=== PATIENT | male | born 1950 | race Caucasian/White ===

== ENCOUNTER → 2018-04-24 16:01 | Outpatient (CLI) | payer MEDICARE, OTHER, SELFPAY ==
[2018-04-24 16:39] LABS: Add Manual Diff / Slide Review NO; Basophils Percent Auto 1.3 % (0-2); Hematocrit 33.4 % (41-53); Hemoglobin 11.6 g/dL (13.5-17.5); Lymphocytes Percent Auto 13.9 % (25-40); Mean Corpuscular HGB Conc 34.8 % (30-36); Mean Corpuscular Hemoglobin 32.6 PG (26-34); Mean Corpuscular Volume 93.8 fL (80-100); Monocytes Percent Auto 13.8 % (3-14); Neutrophils Absolute Auto 3000 /uL (3000-5900); Platelet Count 248 X10^3/uL (150-400); Red Blood Cell Count 3.56 X10^6/uL (4.5-5.9); Red Cell Distribution Width 12.6 % (11.6-14.8); White Blood Cell Count 4.5 X10^3/uL (4.5-11.0)
[2018-04-24 16:57] LABS: Alanine Aminotransferase 27 IU/L (21-72); Albumin 3.9 g/dL (3.5-5.0); Albumin Globulin Ratio 1.6 (1.0-2.8); Alkaline Phosphatase 41 U/L (38-126); Aspartate Aminotransferase 25 IU/L (17-59); BUN Creatinine Ratio 24.4 (6-22); Bilirubin Total 0.3 mg/dL (0.2-1.3); Blood Urea Nitrogen 22 mg/dL (9-20); Carbon Dioxide 32 mmol/L (22-32); Chloride 99 mmol/L (98-107); Estimated Glomerular Filt Rate > 60.0 mL/min (>60); Globulin 2.5 g/dL (1.7-4.1); Glucose 80 mg/dL (80-110); HEMOLYSIS < 15 (0-50); Potassium 4.2 mmol/L (3.4-5.1); Sodium 139 mmol/L (137-145); Total Protein 6.4 g/dL (6.3-8.2)
[2018-04-24 17:14] LABS: Free T4, Direct Thyroxine 0.46 ng/dL (0.78-2.19)
== END ==
PROVIDERS: Visit Provider Family Medicine
DX: C76.0 Malignant neoplasm of head, face and neck (principal)
CPT/HCPCS: 36415; 80053; 84439; 84443; 84481; 85025

== ENCOUNTER → 2018-05-29 07:34 | Outpatient (CLI) | payer MEDICARE, OTHER, SELFPAY ==
[2018-05-29 08:41] LABS: Add Manual Diff / Slide Review NO; Basophils Percent Auto 1.3 % (0-2); Eosinophils Percent Auto 4.1 % (2-4); Hematocrit 35.6 % (41-53); Hemoglobin 12.2 g/dL (13.5-17.5); Lymphocytes Percent Auto 13.2 % (25-40); Mean Corpuscular HGB Conc 34.4 % (30-36); Mean Corpuscular Hemoglobin 32.8 PG (26-34); Mean Corpuscular Volume 95.3 fL (80-100); Monocytes Percent Auto 14.7 % (3-14); Neutrophils Absolute Auto 2900 /uL (3000-5900); Neutrophils Percent Auto 66.7 % (50-75); Platelet Count 257 X10^3/uL (150-400); Red Blood Cell Count 3.73 X10^6/uL (4.5-5.9); Red Cell Distribution Width 13.2 % (11.6-14.8); White Blood Cell Count 4.4 X10^3/uL (4.5-11.0)
[2018-05-29 09:06] LABS: Alanine Aminotransferase 22 IU/L (21-72); Albumin Globulin Ratio 1.5 (1.0-2.8); Alkaline Phosphatase 39 U/L (38-126); Aspartate Aminotransferase 21 IU/L (17-59); Bilirubin Total 0.5 mg/dL (0.2-1.3); Blood Urea Nitrogen 20 mg/dL (9-20); Calcium 8.9 mg/dL (8.4-10.2); Carbon Dioxide 34 mmol/L (22-32); Chloride 100 mmol/L (98-107); Cholesterol 210 mg/dL (140-199); Estimated Glomerular Filt Rate > 60.0 mL/min (>60); Globulin 2.6 g/dL (1.7-4.1); Glucose 99 mg/dL (80-110); HDL Cholesterol 67 mg/dL (40-60); HEMOLYSIS < 15 (0-50); LDL Cholesterol Calculated 126 mg/dL (<100); Potassium 4.2 mmol/L (3.4-5.1); Sodium 140 mmol/L (137-145); Total Protein 6.6 g/dL (6.3-8.2); Triglycerides 83 mg/dL (35-150)
[2018-05-29 09:22] LABS: Free T3, Triiodothyronine Free 3.59 pg/mL (2.77-5.27)
[2018-05-29 09:36] LABS: Thyroid Stimulating Hormone 4.79 uIU/mL (0.47-4.68)
== END ==
PROVIDERS: Visit Provider Family Medicine
DX: E03.9 Hypothyroidism, unspecified (principal); Z51.81 Encounter for therapeutic drug level monitoring
CPT/HCPCS: 36415; 80053; 80061; 84439; 84443; 84481; 85025

== ENCOUNTER → 2018-06-12 14:10 | Outpatient (CLI) | payer MEDICARE, OTHER, SELFPAY ==
--- NOTE | 2018-06-12 14:12 | DI.US.S_ITS ---
PROCEDURE: US CAROTID DOPPLER BI INDICATIONS: history of radiation to neck tumor TECHNIQUE: Color and pulse Doppler interrogation was performed of both carotid systems, with image documentation and velocity measurements. COMPARISON: None. FINDINGS: Stenosis calculations are based on SRU (Society of Radiologists in Ultrasound) criteria. Right side: Common carotid artery peak systolic velocity: 184 cm/sec. Internal carotid artery peak systolic velocity: 196 cm/sec. Internal carotid artery end diastolic velocity: 35 cm/sec. External carotid artery peak systolic velocity: 182 cm/sec. ICA/CCA peak systolic ratio: 1.1. Richard scale imaging description: Moderate calcific and soft plaque Percent internal carotid artery stenosis: 50-69% stenosis. Vertebral artery: Flow direction is antegrade. Left side: Common carotid artery peak systolic velocity: 236 cm/sec. Internal carotid artery peak systolic velocity: 165 cm/sec. Internal carotid artery end diastolic velocity: 20 cm/sec. External carotid artery peak systolic velocity: 151 cm/sec. ICA/CCA peak systolic ratio: 0.7. Richard scale imaging description: Mild to moderate calcific and soft plaque Percent internal carotid artery stenosis: 50-69% stenosis within the proximal left internal carotid artery.. Vertebral artery: Flow direction is antegrade. IMPRESSION: 50-69% stenosis within the proximal internal carotid arteries bilaterally. Normal vertebral arterial flow. Dictated by: Mino Ying M.D. on 06/12/2018 at 16:05 Approved by: Mino Ying M.D. on 06/12/2018 at 16:08
== END ==
PROVIDERS: Visit Provider Family Medicine
DX: I65.23 Occlusion and stenosis of bilateral carotid arteries (principal); C76.0 Malignant neoplasm of head, face and neck
CPT/HCPCS: 93880

== ENCOUNTER → 2018-07-19 08:39 | Outpatient (CLI) | payer MEDICARE, OTHER, SELFPAY ==
[2018-07-19 09:37] LABS: Alanine Aminotransferase 28 IU/L (21-72); Albumin 3.8 g/dL (3.5-5.0); Albumin Globulin Ratio 1.3 (1.0-2.8); Alkaline Phosphatase 46 U/L (38-126); Aspartate Aminotransferase 33 IU/L (17-59); BUN Creatinine Ratio 31.1 (6-22); Bilirubin Total 0.3 mg/dL (0.2-1.3); Blood Urea Nitrogen 28 mg/dL (9-20); Carbon Dioxide 34 mmol/L (22-32); Chloride 102 mmol/L (98-107); Cholesterol 165 mg/dL (140-199); Estimated Glomerular Filt Rate > 60.0 mL/min (>60); Globulin 2.9 g/dL (1.7-4.1); Glucose 130 mg/dL (80-110); HDL Cholesterol 39 mg/dL (40-60); HEMOLYSIS 21 (0-50); LDL Cholesterol Calculated 92 mg/dL (<100); Potassium 4.6 mmol/L (3.4-5.1); Sodium 142 mmol/L (137-145); Total Protein 6.7 g/dL (6.3-8.2); Triglycerides 169 mg/dL (35-150)
[2018-07-19 09:52] LABS: Free T3, Triiodothyronine Free 2.92 pg/mL (2.77-5.27)
[2018-07-19 10:06] LABS: Thyroid Stimulating Hormone 3.27 uIU/mL (0.47-4.68)
== END ==
PROVIDERS: Visit Provider Family Medicine
DX: E78.5 Hyperlipidemia, unspecified (principal); I10 Essential (primary) hypertension; E03.9 Hypothyroidism, unspecified
CPT/HCPCS: 36415; 80053; 80061; 84439; 84443; 84481

== ENCOUNTER → 2018-09-05 10:41 | Outpatient (CLI) | payer MEDICARE, OTHER, SELFPAY ==
[2018-09-05 12:24] LABS: Alanine Aminotransferase 35 IU/L (21-72); Albumin 3.8 g/dL (3.5-5.0); Albumin Globulin Ratio 1.7 (1.0-2.8); Alkaline Phosphatase 45 U/L (38-126); Aspartate Aminotransferase 29 IU/L (17-59); BUN Creatinine Ratio 23.3 (6-22); Bilirubin Total 0.2 mg/dL (0.2-1.3); Blood Urea Nitrogen 21 mg/dL (9-20); Calcium 8.5 mg/dL (8.4-10.2); Carbon Dioxide 30 mmol/L (22-32); Chloride 99 mmol/L (98-107); Cholesterol 140 mg/dL (140-199); Estimated Glomerular Filt Rate > 60.0 mL/min (>60); Globulin 2.3 g/dL (1.7-4.1); Glucose 99 mg/dL (80-110); HDL Cholesterol 59 mg/dL (40-60); HEMOLYSIS < 15 (0-50); LDL Cholesterol Calculated 68 mg/dL (<100); Sodium 138 mmol/L (137-145); Total Protein 6.1 g/dL (6.3-8.2); Triglycerides 66 mg/dL (35-150)
[2018-09-05 12:51] LABS: Thyroid Stimulating Hormone 2.99 uIU/mL (0.47-4.68)
[2018-09-05 13:02] LABS: Hemoglobin A1C% w Est Avg Glu 5.6 % (4.0-6.0)
== END ==
PROVIDERS: PCP Family Medicine; Visit Provider Family Medicine
DX: R73.9 Hyperglycemia, unspecified (principal); Z13.220 Encounter for screening for lipoid disorders; Z13.29 Encounter for screening for other suspected endocrine disorder; Z51.81 Encounter for therapeutic drug level monitoring
CPT/HCPCS: 36415; 80053; 80061; 83036; 84443

== ENCOUNTER → 2018-09-06 14:38 | Outpatient (CLI) | payer MEDICARE, OTHER, SELFPAY ==
--- NOTE | 2018-09-06 | DI.CT.S_ITS ---
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 Additional oblique axial 3.0 mm sections acquired through the pharynx. 3 mm thick coronal and sagittal reformats were generated. For radiation dose reduction, the following was used: automated exposure control. COMPARISON: [facility], CT, SOFT TISSUE NECK W CONTRAST, 09/02/2017, 15:04. FINDINGS: Image quality: Excellent. Lymph nodes: No enlarged lymph nodes seen throughout the neck. Vessels: Atherosclerotic calcification is noted in the origins of the internal carotid arteries bilaterally which appear to cause significant stenosis. Neck spaces: There is a 4.6 x 1.5 x 4.9 cm soft tissue density lesion involving the anterior left neck adjacent to and anterior to the left sternocleidomastoid muscle in the region of the previously described large heterogeneously enhancing neck mass. Lesion is decreased in size compared to 09/02/2017. Lesion occludes at the mid aspect of the left internal jugular vein. The mass abuts and may partially encase the left common carotid artery. The oropharynx, nasopharynx, and pharynx demonstrate no mucosal lesions. The vocal cords, false vocal cords, pyriform sinuses, epiglottis, vallecula, and tongue base all appear normal. Extramucosal spaces appear unremarkable. Glands: The parotid and submandibular glands appear normal. Thyroid gland is within normal limits. Miscellaneous: Visualized brain and orbits appear normal. Lung apices appear clear. Superficial soft tissues appear normal. Bones: No suspicious bony lesions. Spine degenerative disc disease and facet arthropathy. Mild bilateral maxillary sinus mucosal thickening is noted. The mastoids appear unremarkable. IMPRESSION: 1. Anterolateral left neck mass has decreased in size compared to 09/02/2017 measuring approximately 4.6 x 1.5 x 4.9 cm in the current study (the 5.2 x 7.5 x 7.2 cm previously). 2. No lymphadenopathy based on size criteria. Dictated by: Luisa Palmer MD, PhD on 09/06/2018 at 16:54 Approved by: Luisa Palmer MD, PhD on 09/06/2018 at 17:04
--- NOTE | 2018-09-06 | DI.CT.S_ITS ---
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 7 mm thick coronal and sagittal MIP reformats were acquired. For radiation dose reduction, the following was used: automated exposure control, adjustment of mA and/or kV according to patient size. COMPARISON: None. FINDINGS: Image quality: Excellent. Lungs and pleura: No acute consolidation. 2-3 mm ill-defined nodule seen in the posterior left lower lobe on image 53 series 3. Presumed scarring seen in the left posterior sulcus on image 62.. No pleural effusions or pneumothorax. Central and peripheral airways are patent and normal in caliber. Mediastinum: Heart size is normal. Coronary artery calcifications are present. No pericardial effusion. No mediastinal or hilar adenopathy by size criteria. Thoracic aorta and central pulmonary arteries are normal in size. Esophagus is normal in caliber. No hiatal hernia. Bones and chest wall: No suspicious bony lesions. No vertebral body compression fractures. No axillary or supraclavicular adenopathy by size criteria. Thyroid gland unremarkable. Abdomen: Visualized upper abdominal solid organs appear normal. Upper abdominal bowel loops are normal in caliber. IMPRESSION: 2-3 mm left lower lobe indeterminate pulmonary nodule. Recommend attention on subsequent CT studies to exclude early pulmonary metastasis. Elsewhere, no specific CT evidence of metastatic disease. Coronary artery disease. Dictated by: Trever Talbot M.D. on 09/06/2018 at 16:52 Approved by: Trever Talbot M.D. on 09/06/2018 at 16:58
== END ==
PROVIDERS: PCP Family Medicine; Visit Provider Radiology Radiation Oncology
DX: C77.0 Secondary and unspecified malignant neoplasm of lymph nodes of head, face and neck (principal); R22.1 Localized swelling, mass and lump, neck; R91.1 Solitary pulmonary nodule; I25.10 Atherosclerotic heart disease of native coronary artery without angina pectoris
CPT/HCPCS: 70491; 71260; Q9967

== ENCOUNTER → 2019-07-31 12:32 | Outpatient (CLI) | payer MEDICARE, OTHER, SELFPAY ==
[2019-07-31 13:04] LABS: Add Manual Diff / Slide Review NO; Basophils Absolute Auto 100 /uL (0-100); Basophils Percent Auto 0.9 % (0-2); Eosinophils Absolute Auto 200 /uL (0-450); Eosinophils Percent Auto 3.5 % (2-4); Hematocrit 37.5 % (41-53); Hemoglobin 12.8 g/dL (13.5-17.5); Lymphocytes Absolute Auto 700 /uL (1100-4500); Lymphocytes Percent Auto 12.7 % (25-40); Mean Corpuscular HGB Conc 34.1 % (30-36); Mean Corpuscular Hemoglobin 31.7 PG (26-34); Mean Corpuscular Volume 92.9 fL (80-100); Monocytes Absolute Auto 700 /uL (0-900); Monocytes Percent Auto 12.3 % (3-14); Neutrophils Absolute Auto 3900 /uL (1500-7000); Neutrophils Percent Auto 70.6 % (50-75); Platelet Count 234 X10^3/uL (150-400); Red Blood Cell Count 4.04 X10^6/uL (4.5-5.9); Red Cell Distribution Width 12.5 % (11.6-14.8); White Blood Cell Count 5.5 X10^3/uL (4.5-11.0)
[2019-07-31 13:28] LABS: Uric Acid 6.7 mg/dL (3.5-8.5)
[2019-07-31 13:59] LABS: Thyroid Stimulating Hormone 1.84 uIU/mL (0.47-4.68)
[2019-07-31 14:13] LABS: Erythrocyte Sedimentation Rate 13 MM/HR (0-15)
== END ==
PROVIDERS: PCP Family Medicine; Visit Provider Family Medicine
DX: C76.0 Malignant neoplasm of head, face and neck (principal); I65.29 Occlusion and stenosis of unspecified carotid artery; E03.9 Hypothyroidism, unspecified; M19.90 Unspecified osteoarthritis, unspecified site
CPT/HCPCS: 36415; 84443; 84550; 85025; 85651

== ENCOUNTER → 2019-09-19 10:08 | Outpatient (CLI) | payer MEDICARE, OTHER, SELFPAY ==
--- NOTE | 2019-09-19 10:10 | DI.US.S_ITS ---
PROCEDURE: US CAROTID DOPPLER BI INDICATIONS: CAROTID STENOSIS TECHNIQUE: Color and pulse Doppler interrogation was performed of both carotid systems, with image documentation and velocity measurements. COMPARISON: [facility], , US CAROTID DOPPLER BI, 06/12/2018, 14:38. FINDINGS: Stenosis calculations are based on SRU (Society of Radiologists in Ultrasound) criteria. Right side: Brachial blood pressure: Not obtained. Common carotid artery peak systolic velocity: 262 cm/sec. Internal carotid artery peak systolic velocity: 212 cm/sec. Internal carotid artery end diastolic velocity: 61 cm/sec. External carotid artery peak systolic velocity: 124 cm/sec. ICA/CCA peak systolic ratio: 0.8. Richard scale imaging description: Heavy scattered Bi. Percent internal carotid artery stenosis: 50-69% stenosis. Vertebral artery: Flow direction is antegrade. Left side: Brachial blood pressure: 130/61 mm Hg. Common carotid artery peak systolic velocity: 176 cm/sec. Internal carotid artery peak systolic velocity: 326 cm/sec. Internal carotid artery end diastolic velocity: 107 cm/sec. External carotid artery peak systolic velocity: 202 cm/sec. ICA/CCA peak systolic ratio: 1.9. Richard scale imaging description: Heavy scattered plaque. Percent internal carotid artery stenosis: 70% stenosis to near occlusion. Vertebral artery: Flow direction is antegrade. IMPRESSION: 1. 50-69% stable right internal carotid artery stenosis. 2. Progressive 70% stenosis to near occlusion of the left internal carotid artery. 2. Elevated velocities within the common carotid arteries bilaterally suggesting proximal disease, right greater than left. Dictated by: [facility] Interpreted: Luisa Palmer MD on 09/19/2019 at 12:51 Approved by: Luisa Palmer MD, PhD on 09/19/2019 at 13:27
== END ==
PROVIDERS: PCP Family Medicine; Visit Provider Family Medicine
DX: I65.23 Occlusion and stenosis of bilateral carotid arteries (principal)
CPT/HCPCS: 93880

== ENCOUNTER → 2020-01-03 08:07 | Outpatient (CLI) | payer MEDICARE, SELFPAY ==
--- NOTE | 2020-01-03 08:11 | DI.RAD.S_ITS ---
PROCEDURE: XR FINGER LT MIN 2V INDICATIONS: Left index finger pain TECHNIQUE: AP hand, 2 views of the left finger(s) acquired. COMPARISON: None. FINDINGS: Bones: No fractures or dislocations. No suspicious bony lesions. Subtle age indeterminate articular lucency is present at the DIP joints of the index and middle finger. Diffuse interphalangeal joint degeneration, and diffuse MCP joint degeneration. There are hooklike osteophytes at the second and third metacarpal heads. First CMC and triscaphe joint degeneration. Marginal lucency seen involving the second metacarpal head, and at the triquetral, and lunate. Soft tissues: No suspicious soft tissue calcifications. IMPRESSION: Diffuse left hand joint degeneration as above. Hooklike osteophytes at the MCP joint raise the possibility of deposition arthropathy Scattered age-indeterminate juxta-articular lucencies as detailed above. Dictated by: Trever Talbot M.D. on 01/03/2020 at 10:26 Approved by: Trever Talbot M.D. on 01/03/2020 at 10:29
== END ==
PROVIDERS: PCP Physician Assistant; Referring Provider Family Medicine; Visit Provider Family Medicine
DX: M19.042 Primary osteoarthritis, left hand (principal); M18.12 Unilateral primary osteoarthritis of first carpometacarpal joint, left hand
CPT/HCPCS: 73140

== ENCOUNTER → 2020-05-05 08:21 | Outpatient (CLI) | payer MEDICARE, SELFPAY ==
[2020-05-05 09:47] LABS: Add Manual Diff / Slide Review NO; Basophils Absolute Auto 0 /uL (0-100); Eosinophils Absolute Auto 200 /uL (0-450); Hematocrit 37.2 % (41-53); Lymphocytes Absolute Auto 700 /uL (1100-4500); Lymphocytes Percent Auto 14.2 % (25-40); Mean Corpuscular Hemoglobin 32.6 PG (26-34); Mean Corpuscular Volume 93.3 fL (80-100); Monocytes Absolute Auto 700 /uL (0-900); Monocytes Percent Auto 13.5 % (3-14); Neutrophils Absolute Auto 3400 /uL (1500-7000); Neutrophils Percent Auto 67.3 % (50-75); Platelet Count 232 X10^3/uL (150-400); Red Blood Cell Count 3.98 X10^6/uL (4.5-5.9); Red Cell Distribution Width 12.7 % (11.6-14.8)
[2020-05-05 10:23] LABS: Erythrocyte Sedimentation Rate 16 MM/HR (0-15)
[2020-05-05 10:34] LABS: Alanine Aminotransferase 21 IU/L (<50); Albumin 3.8 g/dL (3.5-5.0); Albumin Globulin Ratio 1.7 (1.0-2.8); Alkaline Phosphatase 52 U/L (38-126); Aspartate Aminotransferase 30 IU/L (17-59); BUN Creatinine Ratio 24.7 (6-22); Bilirubin Total 0.7 mg/dL (0.2-1.3); Blood Urea Nitrogen 22 mg/dL (9-20); C-Reactive Protein Quant 1.6 mg/dL (<1.0); Carbon Dioxide 32 mmol/L (22-32); Chloride 102 mmol/L (98-107); Cholesterol 156 mg/dL (140-199); Estimated Glomerular Filt Rate > 60.0 mL/min (>60); Globulin 2.3 g/dL (1.7-4.1); Glucose 102 mg/dL (80-110); HDL Cholesterol 55 mg/dL (40-60); HEMOLYSIS < 15 (0-50); LDL Cholesterol Calculated 88 mg/dL (<100); Potassium 4.7 mmol/L (3.4-5.1); Sodium 137 mmol/L (137-145); Total Protein 6.1 g/dL (6.3-8.2); Triglycerides 64 mg/dL (35-150)
[2020-05-05 10:39] LABS: Rheumatoid Factor < 8.6 IU/mL (<12.0)
[2020-05-05 11:00] LABS: TSH w/ Reflex to FT4 4.63 uIU/mL (0.47-4.68)
[2020-05-06 20:44] LABS: ANA Screen, IFA Negative (.)
[2020-05-07 21:07] LABS: CCP Antibodies IgG/IgA 22 units (0-19)
== END ==
PROVIDERS: PCP Physician Assistant; Referring Provider Physician Assistant; Visit Provider Physician Assistant
DX: E78.2 Mixed hyperlipidemia (principal); E03.9 Hypothyroidism, unspecified; M25.542 Pain in joints of left hand; M25.50 Pain in unspecified joint
CPT/HCPCS: 36415; 80053; 80061; 84443; 85025; 85651; 86038; 86140; 86200; 86430

== ENCOUNTER → 2020-10-22 08:46 | Outpatient (CLI) | payer MEDICARE, SELFPAY ==
--- NOTE | 2020-10-22 | DI.CT.S_ITS ---
PROCEDURE: CT SOFT TISSUE NECK W CON INDICATIONS: Malignant neoplasm of lower gum TECHNIQUE: After the administration of intravenous contrast, 3.0 mm axial sections acquired from the sella to the aortic arch. Additional oblique axial 3.0 mm sections acquired through the pharynx. 3 mm thick coronal and sagittal reformats were generated. For radiation dose reduction, the following was used: automated exposure control. COMPARISON: [facility], [place], [place] FUSION SKULL 2 THIGH, 11/22/2018, 13:54. [facility], CT, SOFT TISSUE NECK W CONTRAST, 09/02/2017, 15:04. [facility], CT, CT SOFT TISSUE NECK W CON, 09/06/2018, 14:45. FINDINGS: Image quality: Excellent. Lymph nodes: No enlarged lymph nodes seen throughout the neck. Vessels: Visualized vasculature appears patent. Neck spaces: There is appearance of soft tissue thickening in the anterior neck adjacent to the left sternocleidomastoid muscle. Area of enlargement measures approximately 44 mm AP x 18 mm transverse. It is less prominent compared to 2018 and appearing relatively stable compared to 2019 PET scan. Glands: The parotid and submandibular glands appear normal. Thyroid gland is unremarkable . Miscellaneous: Visualized brain and orbits appear normal. Lung apices appear clear. Superficial soft tissues appear normal. Bones: No suspicious bony lesions. Visualized sinuses and mastoids appear unremarkable. IMPRESSION: 1. Stable appearance of left anterior neck soft tissue prominence since 2019. Dictated by: Shara Troncoso M.D. on 10/22/2020 at 13:32 Approved by: Shara Troncoso M.D. on 10/22/2020 at 13:49
[2020-10-22 09:32] LABS: Estimated Glomerular Filt Rate > 60.0 mL/min (>60)
--- NOTE | 2020-10-22 10:14 | DI.CT.S_ITS ---
PROCEDURE: CT CHEST W CON INDICATIONS: Malignant neoplasm of lower gum TECHNIQUE: After the administration of intravenous contrast, 5 mm thick sections acquired from the pulmonary apices to the posterior costophrenic angles. 1 mm axial lung, 5 mm thick coronal and sagittal reformats and 7 mm axial MIP were acquired. For radiation dose reduction, the following was used: automated exposure control, adjustment of mA and/or kV according to patient size. COMPARISON: [facility], [place], [place] PET CT FUSION SKULL 2 THIGH, 11/22/2018, 13:54. [facility], CT, CT CHEST W CON, 09/06/2018, 14:45. FINDINGS: Image quality: Excellent. 3 mm pulmonary nodule left lung base appears mildly more conspicuous since 09/06/18 however at this size could be due to slice registration artifact. Scattered subsegmental atelectasis and/or scarring. No focal consolidation. No pleural effusions or pneumothorax. Airway thickening in keeping with nonspecific bronchitis and/or reactive airways disease. Mediastinum: Heart size is normal. Coronary artery calcifications are present. This appears moderate in degree No pericardial effusion. No mediastinal or hilar adenopathy by size criteria. Thoracic aorta and central pulmonary arteries are normal in size. Scattered vascular calcifications seen in the aorta. Esophagus is normal in caliber. No hiatal hernia. Bones and chest wall: No suspicious bony lesions. No vertebral body compression fractures. No axillary or supraclavicular adenopathy by size criteria. Thyroid is grossly unremarkable Abdomen: Visualized upper abdominal solid organs appear normal. Upper abdominal bowel loops are normal in caliber. IMPRESSION: 3 mm left lung base pulmonary nodule which is mildly more conspicuous however could be due to slice registration artifact. If clinically warranted, a follow-up [address] could be performed to document definitive long-term stability Elsewhere, no suspicious findings to suggest metastatic disease. Dictated by: Trever Talbot M.D. on 10/22/2020 at 12:18 Approved by: Trever Talbot M.D. on 10/22/2020 at 12:25
== END ==
PROVIDERS: PCP Physician Assistant; Referring Provider Radiology Radiation Oncology; Visit Provider Radiology Radiation Oncology
DX: C03.1 Malignant neoplasm of lower gum (principal); R91.1 Solitary pulmonary nodule
CPT/HCPCS: 36415; 70491; 71260; 82565; Q9967

== ENCOUNTER → 2021-07-14 09:03 | Outpatient (CLI) | payer MEDICARE, SELFPAY ==
--- NOTE | 2021-07-14 | DI.US.S_ITS ---
PROCEDURE: US ABD AORTA ANEURYSM SCREEN INDICATIONS: SCREENING TECHNIQUE: Real time scanning was performed of the aorta and iliac arteries, with image documentation. COMPARISON: None. FINDINGS: There is mild diffuse atheromatous plaque. Aorta: Proximal aortic diameter measures 2.8 cm. Mid-aorta measures 2.0 cm. Distal aortic diameter is 2.0 cm. Iliac arteries: Right common iliac artery measures 0.9 cm. Left common iliac artery measures 1.2 cm. IMPRESSION: Negative examination. No aneurysm identified. Mild diffuse atheromatous plaque. Dictated by: Trever Talbot M.D. on 07/14/2021 at 12:15 Approved by: Trever Talbot M.D. on 07/14/2021 at 12:15
== END ==
PROVIDERS: PCP Physician Assistant; Referring Provider Physician Assistant; Visit Provider Physician Assistant
DX: Z13.6 Encounter for screening for cardiovascular disorders (principal); I70.0 Atherosclerosis of aorta
CPT/HCPCS: 76706

== ENCOUNTER → 2023-02-21 10:38 | Outpatient (CLI) | payer MEDICARE, SELFPAY ==
--- NOTE | 2023-02-21 | DI.US.S_ITS ---
PROCEDURE: US CAROTID DOPPLER BI INDICATIONS: stenosis of bilateral carotid arteries TECHNIQUE: Color and pulse Doppler interrogation was performed of both carotid systems, with image documentation and velocity measurements. COMPARISON: [facility], , US CAROTID DOPPLER BI, 09/19/2019, 10:33. FINDINGS: Stenosis calculations are based on SRU (Society of Radiologists in Ultrasound) criteria. Right side: Brachial blood pressure: 201/87 mm Hg. Common carotid artery peak systolic velocity: 241 cm/sec. Internal carotid artery peak systolic velocity: 155 cm/sec. Internal carotid artery end diastolic velocity: 38 cm/sec. External carotid artery peak systolic velocity: 124 cm/sec. ICA/CCA peak systolic ratio: 0.6 . Richard scale imaging description: Heavy plaque Percent internal carotid artery stenosis: 50-69 percent . Vertebral artery: Flow direction is antegrade. Left side: Brachial blood pressure: 185/86 mm Hg. Common carotid artery peak systolic velocity: 119 cm/sec. Internal carotid artery peak systolic velocity: 78 cm/sec. Internal carotid artery end diastolic velocity: 22 cm/sec. External carotid artery peak systolic velocity: 110 cm/sec. ICA/CCA peak systolic ratio: 0.7 . Richard scale imaging description: Mild plaque Percent internal carotid artery stenosis: Less than 50 percent . Vertebral artery: Flow not detected IMPRESSION: 1. 50-69 percent stenosis of the right internal carotid artery. 2. Less than 50 percent stenosis of the left internal carotid artery. 3. No flow detected within the imaged left vertebral artery, possibly occluded Dictated by: Giovany Pereyra M.D. on 02/21/2023 at 17:28 Approved by: Giovany Pereyra M.D. on 02/21/2023 at 17:44
== END ==
PROVIDERS: PCP Physician Assistant; Referring Provider Physician Assistant; Visit Provider Physician Assistant
DX: I65.23 Occlusion and stenosis of bilateral carotid arteries (principal)
CPT/HCPCS: 93880

== ENCOUNTER 2023-02-28 07:43 | Emergency (ER) | payer MEDICARE, SELFPAY ==
[2023-02-28] VITALS (15 sets, daily range): BP systolic 138–193; BP diastolic 61–82; PULSE 69–100; RESP 12–25; TEMP 36.4; O2SAT 95–99; BMI 25.1
--- NOTE | 2023-02-28 07:58 | DI.RAD.S_ITS ---
PROCEDURE: XR CHEST 1V INDICATIONS: chest pain TECHNIQUE: One view of the chest was acquired. COMPARISON: [facility], , CHEST 2 VIEW, 06/07/2016, 10:21. FINDINGS: Surgical changes and devices: None. Lungs and pleura: Lungs are clear. No pleural effusions or pneumothorax. Mediastinum: Mediastinal contours appear unchanged. Heart size is within normal limits. Bones and chest wall: No suspicious bony lesions. Overlying soft tissues appear unremarkable. IMPRESSION: No acute cardiopulmonary abnormality. Dictated by: John Mendoza M.D. on 02/28/2023 at 9:05 Approved by: John Mendoza M.D. on 02/28/2023 at 9:06
--- NOTE | 2023-02-28 08:01 | PC.NURSE ---
This RN presented this patient case to Provider who gave verbal order to initiate the Chest pain nurse order set for this patient.
[2023-02-28 08:07] LABS: Add Manual Diff / Slide Review NO; Basophils Absolute Auto 100 /uL (0-100); Basophils Percent Auto 0.8 % (0-2); Eosinophils Absolute Auto 0 /uL (0-450); Eosinophils Percent Auto 0.5 % (2-4); Lymphocytes Absolute Auto 400 /uL (1100-4500); Lymphocytes Percent Auto 4.6 % (25-40); Mean Corpuscular HGB Conc 34.3 % (30-36); Mean Corpuscular Hemoglobin 31.7 PG (26-34); Mean Corpuscular Volume 92.6 fL (80-100); Monocytes Absolute Auto 800 /uL (0-900); Monocytes Percent Auto 7.9 % (3-14); Neutrophils Absolute Auto 8300 /uL (1500-7000); Neutrophils Percent Auto 86.2 % (50-75); Platelet Count 276 X10^3/uL (150-400); Red Blood Cell Count 4.43 X10^6/uL (4.5-5.9); Red Cell Distribution Width 13.2 % (11.6-14.8); White Blood Cell Count 9.6 X10^3/uL (4.5-11.0)
--- NOTE | 2023-02-28 08:09 | ED.GENADULT ---
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 He has been monitoring his blood pressures for quite awhile twice a day blood pressures range from 133/72 196/108. He is had dull ache in the back of his head for about 10 days. No nausea vomiting numbness tingling or weakness. He was seen by his primary care provider who ordered a carotid Doppler. Found to have less than 50% stenosis on the right side and 50-69% stenosis on the left. He is concerned facets were his cancer was. No chest pain or palpitations. Although on the monitor he is noted to have frequent PVCs. He was taking atorvastatin however he start for a prolonged period of time he did not tolerate the medicine well however now with all of his symptoms and things he restarted the atorvastatin is a few days ago. He is intermittently been taking aspirin as needed. Related Data Home Medications Medication Instructions Recorded Confirmed acetaminophen 500 mg capsule 1,000 mg PO QID PRN 01/16/19 12/18/19 aspirin 325 mg tablet 325 mg PO DAILY 12/18/19 12/18/19 Previous Rx's Medication Instructions Recorded atorvastatin 20 mg tablet 20 mg PO DAILY caotid stenosis #90 08/21/19 tabs indomethacin 50 mg capsule 50 mg PO DAILY PRN Severe 08/21/19 arthritic pain #20 caps levothyroxine 100 mcg tablet 100 mcg PO DAILY #90 tabs 10/08/19 (Synthroid) hydrochlorothiazide 12.5 mg tablet 12.5 mg PO DAILY #30 tabs 02/28/23 Allergies Allergy/AdvReac Type Severity Reaction Status Date / Time shellfish derived Allergy Severe Anaphylaxis Verified 12/18/19 10:12 watermellon Allergy Severe swollen Uncoded 12/18/19 10:12 throat and tongue Review of Systems Review of Systems ROS Unobtainable: All systems reviewed & are unremarkable except as noted in HPI and below Patient History Medical History Acne (Unknown) Arthritis of finger of left hand Chickenpox Head and neck cancer (2017) Head and neck cancer Measles Mumps Somatic dysfunction of left upper extremity Surgical History Hx of tonsillectomy (1953) Family History Father No problems noted. Mother Cancer Grandfather No problems noted. Grandmother Cancer Grandfather No problems noted. Grandmother No problems noted. Social History Smoking Status: Former smoker Tobacco: How many years used: 50 second hand exposure: No alcohol intake: former (quit about age 47, recovering alcoholic) substance use type: does not use Smoking Status: Former smoker Substance Use Type: does not use Exam Initial Vital Signs Initial Vital Signs: Vital Signs Pulse Oximetry 95 02/28/23 07:47 GENERAL: Alert pleasant well-appearing 72 HEENT: Head atraumatic,EOMI, pupils reactive, face symmetric, moist mucous membranes CARDIOVASCULAR: Regular rate and rhythm without murmurs, rubs or gallops. RESPIRATORY: Breath sounds equal bilaterally, no wheezes rales or rhonchi. ABDOMEN: Soft, nontender. Normoactive bowel sounds all 4 quadrants. No guarding or rebound. EXTREMITIES: Normal range of motion, no clubbing or edema. Neurovascularly intact NEUROLOGICAL: Alert and oriented x4. Environmental Services Supervisor strength equal bilaterally lower strength equal as well. SKIN: Warm, dry, no laceration, no petechiae, no rashes or lesions. Course Orders Ordered: Discontinued Medications Aspirin (Aspirin 81 Mg Chew Tab) 324 mg PO NOW ONE Stop: 02/28/23 07:59 Last Admin: 02/28/23 08:27 Dose: Not Given Documented By: AT Ketorolac Tromethamine (Ketorolac 30 Mg/Ml Vial) 15 mg IV NOW ONE Stop: 02/28/23 08:20 Last Admin: 02/28/23 08:38 Dose: 15 mg Documented By: MO Vital Signs Vital signs: Vital Signs - 8 hr 02/28/23 07:51 02/28/23 07:47 02/28/23 07:48 Temperature 97.6 F Pulse Rate 100 H 96 H Respiratory Rate 17 Blood Pressure 193/82 H Pulse Oximetry 96 95 97 Oxygen Delivery Method Room Air 02/28/23 07:48 02/28/23 08:00 02/28/23 08:15 Temperature Pulse Rate 87 85 Respiratory Rate 17 Blood Pressure 193/82 H Pulse Oximetry 99 98 Oxygen Delivery Method 02/28/23 08:36 02/28/23 08:42 02/28/23 08:42 Temperature Pulse Rate 87 78 Respiratory Rate 19 15 Blood Pressure 189/74 H Pulse Oximetry 98 97 Oxygen Delivery Method 02/28/23 08:45 Temperature Pulse Rate 76 Respiratory Rate 25 H Blood Pressure Pulse Oximetry 97 Oxygen Delivery Method Medical Decision Making Lab Data 02/28/23 07:57 02/28/23 07:57 Labs: Lab Results 02/28/23 02/28/23 02/28/23 Range/Units 07:57 07:57 07:57 WBC 9.6 (4.5-11.0) X10^3/uL RBC 4.43 L (4.5-5.9) X10^6/uL Hgb 14.0 (13.5-17.5) g/dL Hct 41.0 (41-53) % MCV 92.6 (80-100) fL MCH 31.7 (26-34) PG MCHC 34.3 (30-36) % RDW 13.2 (11.6-14.8) % Plt Count 276 (150-400) X10^3/uL Neut % (Auto) 86.2 H (50-75) % Lymph % (Auto) 4.6 L (25-40) % [place] % (Auto) 7.9 (3-14) % Eos % (Auto) 0.5 L (2-4) % Baso % (Auto) 0.8 (0-2) % Neut # (Auto) 8300 H (0233-0801) /uL Lymph # (Auto) 400 L (1539-5257) /uL [place] # (Auto) 800 (0-900) /uL Eos # (Auto) 0 (0-450) /uL Baso # (Auto) 100 (0-100) /uL PT 13.2 H (10.1-12.7) SECONDS INR 1.2 (0.9-1.3) APTT 33 (26-36) SECONDS Sodium 133 L (137-145) mmol/L Potassium 4.2 (3.4-5.1) mmol/L Chloride 99 (98-107) mmol/L Carbon Dioxide 27 (22-32) mmol/L BUN 25 H (9-20) mg/dL Creatinine 1.25 (0.66-1.25) mg/dL Estimated GFR > 60 (>60) mL/min BUN/Creatinine Ratio 20.0 (6-22) Glucose 195 H (80-110) mg/dL Calcium 8.8 (8.4-10.2) mg/dL Magnesium 1.9 (1.6-2.3) mg/dL Total Bilirubin 0.7 (0.2-1.3) mg/dL AST 32 (17-59) IU/L ALT 27 (<50) IU/L Alkaline Phosphatase 56 (38-126) U/L Total Creatine Kinase 219 H (55-170) U/L CK-MB (CK-2) 6.04 H (<2.37) ng/mL CK-MB (CK-2) Rel Index 2.8 (1.5-5.0) % Troponin I 0.030 (0.01-0.034) ng/mL Total Protein 7.1 (6.3-8.2) g/dL Albumin 4.2 (3.5-5.0) g/dL Globulin 2.9 (1.7-4.1) g/dL Albumin/Globulin Ratio 1.4 (1.0-2.8) Lipase 46 (23-300) U/L SARS-CoV-2 (PCR) (Negative) 02/28/23 Range/Units 07:57 WBC (4.5-11.0) X10^3/uL RBC (4.5-5.9) X10^6/uL Hgb (13.5-17.5) g/dL Hct (41-53) % MCV (80-100) fL MCH (26-34) PG MCHC (30-36) % RDW (11.6-14.8) % Plt Count (150-400) X10^3/uL Neut % (Auto) (50-75) % Lymph % (Auto) (25-40) % [place] % (Auto) (3-14) % Eos % (Auto) (2-4) % Baso % (Auto) (0-2) % Neut # (Auto) (0619-3886) /uL Lymph # (Auto) (5958-8342) /uL [place] # (Auto) (0-900) /uL Eos # (Auto) (0-450) /uL Baso # (Auto) (0-100) /uL PT (10.1-12.7) SECONDS INR (0.9-1.3) APTT (26-36) SECONDS Sodium (137-145) mmol/L Potassium (3.4-5.1) mmol/L Chloride (98-107) mmol/L Carbon Dioxide (22-32) mmol/L BUN (9-20) mg/dL Creatinine (0.66-1.25) mg/dL Estimated GFR (>60) mL/min BUN/Creatinine Ratio (6-22) Glucose (80-110) mg/dL Calcium (8.4-10.2) mg/dL Magnesium (1.6-2.3) mg/dL Total Bilirubin (0.2-1.3) mg/dL AST (17-59) IU/L ALT (<50) IU/L Alkaline Phosphatase (38-126) U/L Total Creatine Kinase (55-170) U/L CK-MB (CK-2) (<2.37) ng/mL CK-MB (CK-2) Rel Index (1.5-5.0) % Troponin I (0.01-0.034) ng/mL Total Protein (6.3-8.2) g/dL Albumin (3.5-5.0) g/dL Globulin (1.7-4.1) g/dL Albumin/Globulin Ratio (1.0-2.8) Lipase (23-300) U/L SARS-CoV-2 (PCR) Negative (Negative) Urine Dip Bedside Urine Glucose Negative Bedside Urine Bilirubin - Negative Bedside Urine Ketone - Negative Urine Specific [place] 1.015 Bedside Urine Occult Blood - Negative Bedside Urine pH 6.0 Bedside Urine Protein - Negative Bedside Urine Urobilinogen - Negative Bedside Urine Nitrite - Negative Bedside Urine Leukocytes - Negative Esterase Point of care testing: Urine Dip Bedside Urine Glucose Negative Bedside Urine Bilirubin - Negative Bedside Urine Ketone - Negative Urine Specific [place] 1.015 Bedside Urine Occult Blood - Negative Bedside Urine pH 6.0 Bedside Urine Protein - Negative Bedside Urine Urobilinogen - Negative Bedside Urine Nitrite - Negative Bedside Urine Leukocytes - Negative Esterase Imaging Data CT scan - head: Radiologist's Impression: PROCEDURE:? CT HEAD/BRAIN WO CON ? INDICATIONS:? headache, hx cancer ? TECHNIQUE:? Noncontrast 4.5 mm thick angled axial sections acquired from the foramen magnum to the vertex, with coronal and sagittal reformats.? For radiation dose reduction, the following was used:? automated exposure control, adjustment of mA and/or kV according to patient size.? ? COMPARISON:? None. ? FINDINGS:? Image quality:? Excellent.? ? CSF spaces:? Basal cisterns are patent.? No extra-axial fluid collections.? Ventricles are normal in size and shape.? ? Brain:? No midline shift.? No intracranial masses or hemorrhage.? No area of hypodensity in a large vascular distribution to suggest acute infarction. Periventricular hypodensity consistent with chronic microvascular ischemic change. Age-related parenchymal loss. ? Skull and face:? Calvarium and visualized facial bones are intact, without suspicious lesions.? ? Sinuses:? Mild maxillary sinus mucosal thickening.? Mastoids are clear.? ? IMPRESSION:? No acute intracranial abnormality. Chronic microvascular ischemic disease. ? ? Dictated by: John Mendoza M.D. on 02/28/2023 at 8:54 ? ? Approved by: John Mendoza M.D. on 02/28/2023 at 8:57 ? Chest x-ray: Radiologist's Impression: PROCEDURE:? XR CHEST 1V ? INDICATIONS:? chest pain ? TECHNIQUE:? One view of the chest was acquired.? ? COMPARISON:? [facility], , CHEST 2 VIEW, 06/07/2016, 10:21. ? FINDINGS:? ? Surgical changes and devices:? None.? ? Lungs and pleura:? Lungs are clear.? No pleural effusions or pneumothorax.? ? Mediastinum:? Mediastinal contours appear unchanged.? Heart size is within normal limits. ? ? Bones and chest wall:? No suspicious bony lesions.? Overlying soft tissues appear unremarkable.? ? IMPRESSION:? No acute cardiopulmonary abnormality. ? ? ? Dictated by: John Mendoza M.D. on 02/28/2023 at 9:05 ECG Data Interpretation: Normal sinus rhythm rate 88 OH interval 142 QRS [address] changes no T-wave inversions PVC noted, no priors to compare MDM Narrative Medical decision making narrative: Patient is a 72-year-old male who presents today with a mild headache ongoing. Blood pressure seems to be persistently elevated he has been monitoring it for a couple of weeks. It does have some variability. However he does seem to be symptomatic with a mild headache. No evidence of stroke NIH stroke scale is [address] is also negative, no evidence of end-organ damage. No leukocytosis or anemia, sodium is 133 slightly low but not critical no other electrolyte abnormalities creatinine is 1.25 which is slightly more elevated than previous in 2020 previously was 0.96. Glucose is also noted to be mildly elevated 195. Carotid ultrasound which was done 02/21/2023 shows less than 50% stenosis on the left side and 50-69% stenosis on the right side. This probably needs to be monitored with hyperlipidemia hypertension and diabetes control. But no emergent intervention at this time. He is fairly asymptomatic. Will start patient on low-dose hydrochlorothiazide. He can follow up with PCP for management. Discharge Plan Departure Patient Disposition: Home Clinical Impression: Hypertension Instructions: DI for High Blood Pressure Activity Restrictions/Additional Instructions: *You have been diagnosed with high blood pressure *What to do: At this time please continue to monitor blood pressure. Please see your primary care provider in regards to blood pressure management. Based on your recordings I think reasonable to start a low dose of blood pressure medication may be changed by her primary *Continue to take medications as directed Hydrochlorothiazide 12.5 mg daily *Follow up with your primary care provider in 2-3 days or call [phone] *Return to ER if you should have elevated blood pressure greater than 200/100 worsening headache numbness tingling weakness facial droop or any new, worsening or concerning symptoms Prescriptions: New hydrochlorothiazide 12.5 mg tablet 12.5 mg PO DAILY Qty: 30 0RF No Action acetaminophen 500 mg capsule 1,000 mg PO QID PRN indomethacin 50 mg capsule 50 mg PO DAILY PRN (Reason: Severe arthritic pain) Qty: 20 0RF Rx Instructions: take one tab daily until pain resolves, administer with food or milk atorvastatin 20 mg tablet 20 mg PO DAILY Qty: 90 1RF levothyroxine [Synthroid] 100 mcg tablet 100 mcg PO DAILY Qty: 90 1RF aspirin 325 mg tablet 325 mg PO DAILY Referrals: Kasia Meneses PA-C [Primary Care Provider] - Stand Alone Forms: Patient Portal/API
[2023-02-28 08:15] LABS: INR 1.2 (0.9-1.3); Prothrombin Time 13.2 SECONDS (10.1-12.7)
[2023-02-28 08:18] LABS: PTT Partial Thromboplastin Tim 33 SECONDS (26-36)
[2023-02-28 08:19] LABS: Alanine Aminotransferase 27 IU/L (<50); Albumin 4.2 g/dL (3.5-5.0); Albumin Globulin Ratio 1.4 (1.0-2.8); Alkaline Phosphatase 56 U/L (38-126); Aspartate Aminotransferase 32 IU/L (17-59); Bilirubin Total 0.7 mg/dL (0.2-1.3); Blood Urea Nitrogen 25 mg/dL (9-20); Calcium 8.8 mg/dL (8.4-10.2); Carbon Dioxide 27 mmol/L (22-32); Chloride 99 mmol/L (98-107); Creatine Kinase 219 U/L (55-170); Estimated Glomerular Filt Rate > 60 mL/min (>60); Globulin 2.9 g/dL (1.7-4.1); Glucose 195 mg/dL (80-110); HEMOLYSIS < 15 (0-50); Lipase 46 U/L (23-300); Magnesium 1.9 mg/dL (1.6-2.3); Potassium 4.2 mmol/L (3.4-5.1); Sodium 133 mmol/L (137-145); Total Protein 7.1 g/dL (6.3-8.2)
--- NOTE | 2023-02-28 08:19 | DI.CT.S_ITS ---
PROCEDURE: CT HEAD/BRAIN WO CON INDICATIONS: headache, hx cancer TECHNIQUE: Noncontrast 4.5 mm thick angled axial sections acquired from the foramen magnum to the vertex, with coronal and sagittal reformats. For radiation dose reduction, the following was used: automated exposure control, adjustment of mA and/or kV according to patient size. COMPARISON: None. FINDINGS: Image quality: Excellent. CSF spaces: Basal cisterns are patent. No extra-axial fluid collections. Ventricles are normal in size and shape. Brain: No midline shift. No intracranial masses or hemorrhage. No area of hypodensity in a large vascular distribution to suggest acute infarction. Periventricular hypodensity consistent with chronic microvascular ischemic change. Age-related parenchymal loss. Skull and face: Calvarium and visualized facial bones are intact, without suspicious lesions. Sinuses: Mild maxillary sinus mucosal thickening. Mastoids are clear. IMPRESSION: No acute intracranial abnormality. Chronic microvascular ischemic disease. Dictated by: John Mendoza M.D. on 02/28/2023 at 8:54 Approved by: John Mendoza M.D. on 02/28/2023 at 8:57
[2023-02-28 08:20] LABS: COVID19 -Nasal RAPID Negative (Negative)
[2023-02-28 08:34] LABS: CKMB % Relative Index 2.8 % (1.5-5.0); Creatine Kinase MB 6.04 ng/mL (<2.37)
[2023-02-28] MEDS: KETOROLAC 30 MG/ML VIAL 15 MG IV (08:38)
== END 2023-02-28 09:50 | disposition home or self-care (01) ==
PROVIDERS: Emergency Provider Emergency Medicine; PCP Physician Assistant
DX: I10 Essential (primary) hypertension (principal); R51.9 Headache, unspecified; R07.9 Chest pain, unspecified; Z20.822 Contact with and (suspected) exposure to COVID-19
CPT/HCPCS: 36415; 70450; 71045; 80053; 81003; 82550; 82553; 83690; 83735; 84484; 85025; 85610; 85730; 87635; 93005; 93010; 96374; 99284; C9803; J1885

== ENCOUNTER → 2024-05-21 12:20 | Outpatient (CLI) | payer MEDICARE, SELFPAY ==
--- NOTE | 2024-05-21 12:23 | DI.US.S_ITS ---
PROCEDURE: US CAROTID DOPPLER BI INDICATIONS: BILATERAL STENOSIS TECHNIQUE: Color and pulse Doppler interrogation was performed of both carotid systems, with image documentation and velocity measurements. COMPARISON: [facility], , US CAROTID DOPPLER BI, 02/21/2023, 10:55. FINDINGS: Stenosis calculations are based on SRU (Society of Radiologists in Ultrasound) criteria. Right side: Brachial blood pressure: 189/75 mm Hg. Common carotid artery peak systolic velocity: 191 cm/sec. Internal carotid artery peak systolic velocity: Tool for cm/sec. Internal carotid artery end diastolic velocity: 59 cm/sec. External carotid artery peak systolic velocity: 189 cm/sec. ICA/CCA peak systolic ratio: 1.0 . Richard scale imaging description: Moderate atherosclerotic plaque Percent internal carotid artery stenosis: 50-69 percent. Vertebral artery: Flow direction is antegrade. Left side: Brachial blood pressure: 147/73 mm Hg. Common carotid artery peak systolic velocity: 94 cm/sec. Internal carotid artery peak systolic velocity: 142 cm/sec. Internal carotid artery end diastolic velocity: 32 cm/sec. External carotid artery peak systolic velocity: 123 cm/sec. ICA/CCA peak systolic ratio: 2.0 Richard scale imaging description: Moderate atherosclerotic plaque Percent internal carotid artery stenosis: 50-69 percent . Vertebral artery: No flow seen seen. IMPRESSION: 1. 50-69 percent stenosis of the internal carotid artery bilaterally 2. Again, no flow is seen in the left vertebral artery, which is possibly occluded Dictated by: Daniel Guzmán M.D. on 05/22/2024 at 12:50 Approved by: Daniel Guzmán M.D. on 05/22/2024 at 12:58
== END ==
PROVIDERS: PCP Physician Assistant; Referring Provider Physician Assistant; Visit Provider Physician Assistant
DX: I65.23 Occlusion and stenosis of bilateral carotid arteries (principal)
CPT/HCPCS: 93880